=== PATIENT | male | born 1965 | race Caucasian/White ===

== ENCOUNTER → 2017-07-27 | Outpatient (REF) | LOC: ZLAB.WCH 14:36 | DX: Z01.89 Encounter for other specified special examinations (principal) ==

== ENCOUNTER → 2017-09-29 | Outpatient (CLI) | payer OTHER ==
[~2017-09-29] VITALS: Wt 107.0 kg
[~2017-09-29] MED LIST: FOLIC ACID 11 MG/TA1 PO; K-DUR20 MEQ PO; LASIX 40MG TABL40 MG PO; SEPTRA DS 8001 TAB PO; SYNTHROID0.05 MG/TA PO
[2017-09-29 12:35] VITALS: BP 127/83; PULSE 100
[2017-09-29 14:15] VITALS: BP 130/80; PULSE 103
== END ==
LOC: COL.RAD 12:00
DX: K70.31 Alcoholic cirrhosis of liver with ascites (principal)

== ENCOUNTER → 2017-10-10 | Outpatient (CLI) | payer OTHER ==
[~2017-10-10] VITALS: Ht 182.9 cm; Wt 170.9 kg
[~2017-10-10] MED LIST changes: +VITAMIN B1 50 MG PO
[2017-10-10 12:32] VITALS: BP 141/94; PULSE 97
[2017-10-10 14:33] VITALS: BP 146/86; PULSE 97
== END ==
LOC: COL.RAD 12:00
DX: K70.31 Alcoholic cirrhosis of liver with ascites (principal)

== ENCOUNTER → 2018-01-05 | Outpatient (CLI) | payer OTHER ==
[~2018-01-05] VITALS: Ht 182.9 cm; Wt 155.4 kg
[~2018-01-05] MED LIST changes: +PROVENTIL0.09 MG/A1 IH
[2018-01-05 09:17] VITALS: BP 119/62; PULSE 98
[2018-01-05 11:04] VITALS: BP 119/68; PULSE 91
== END ==
LOC: COL.RAD 09:00
DX: K70.31 Alcoholic cirrhosis of liver with ascites (principal); J44.9 Chronic obstructive pulmonary disease, unspecified

== ENCOUNTER → 2018-01-12 | Outpatient (CLI) | payer OTHER | LOC: COL.PUL 08:55 | DX: J44.9 Chronic obstructive pulmonary disease, unspecified (principal); F17.210 Nicotine dependence, cigarettes, uncomplicated ==

== ENCOUNTER 2018-01-17 20:01 | Inpatient (IN) | payer OTHER ==
[~2018-01-17] VITALS: Ht 182.9 cm; Wt 169.0 kg
[2018-01-17] VITALS (39 sets, daily range): BP systolic 96; BP diastolic 74; PULSE 94; TEMP 98.1; O2SAT 91–97
[2018-01-17 20:25] LABS: BASO # 0.1 (0.0-0.2); EOS # 0.3 (0.0-0.7); EOS % 4.9 % (0-4.0); GRAN # 4.4 (1.4-6.5); GRAN % 62.1 % (42.2-75.2); LYMPH # 1.6 (1.2-3.4); LYMPH % 22.4 % (20.0-51.0); MEAN CELL VOLUME 100 fl (80.0-100.0); MEAN CORPUSCULAR HGB CONC 33 g/dl (33.0-37.0); MEAN PLATELET VOLUME 8.9 fl (7.4-10.4); MONO # 0.7 (0.1-0.6); MONO % 9.3 % (1.7-9.3); PLATELET COUNT 109 K/mm3 (130-400); RED BLOOD COUNT 3.04 M/mm3 (4.20-5.60); REDCELL DISTRIBUTION WIDTH-CV 19.3 % (11.5-14.5)
[2018-01-17 20:26] LABS: HEMATOCRIT 30.4 % (42.0-52.0); HEMOGLOBIN 10.1 g/dl (13.5-18.0); MEAN CORPUSCULAR HEMOGLOBIN 33 pg (27.0-31.0)
[2018-01-17 20:50] LABS: ALBUMIN 2.2 gm/dL (3.5-5.0); BILIRUBIN,TOTAL 5.2 mg/dL (0.0-1.0); C-REACTIVE PROTEIN 1.7 mg/dL (0.0-0.9); CREATININE, serum 0.88 mg/dL (0.66-1.25); POTASSIUM 3.5 mmol/L (3.4-5.0); TOTAL PROTEIN 7.3 gm/dL (6.4-8.2)
[2018-01-17 21:44] LABS: COLLECTION METHOD CLEAN CATCH
[2018-01-17 21:49] LABS: MUCOUS Present /lpf; PH 5 (5-8); SQUAMOUS EPITHELIAL 0-2 /hpf; URINE APPEARANCE Clear; URINE BACTERIA None Seen /hpf; URINE BILIRUBIN Negative (NEGATIVE); URINE BLOOD Negative (NEGATIVE); URINE COLOR Yellow; URINE GLUCOSE Negative (NEGATIVE); URINE KETONE Negative (NEGATIVE); URINE LEUKOCYTE ESTERASE Negative (NEGATIVE); URINE NITRATE Negative (NEGATIVE); URINE PROTEIN(semi-quant) Negative (NEGATIVE); URINE RBC 0-2 /hpf; URINE UROBILINOGEN >=4.0 mg/dL (NEGATIVE)
[2018-01-17 23:50] LABS: INR 2.1 (0.8-3.0); PROTHROMBIN TIME 24.1 SECONDS (9.7-12.8)
[2018-01-18] VITALS (341 sets, daily range): BP systolic 99–130; BP diastolic 49–106; PULSE 54–108; TEMP 97.7–99; O2SAT 88–100
[2018-01-18 05:26] LABS: TRICYCLIC ANTIDEPRESS URINE NEGATIVE
[2018-01-18 05:41] LABS: BASO # 0.1 (0.0-0.2); BASO % 1.2 % (0.0-2.0); EOS # 0.4 (0.0-0.7); EOS % 4.8 % (0-4.0); GRAN # 4.5 (1.4-6.5); GRAN % 62.4 % (42.2-75.2); LYMPH # 1.6 (1.2-3.4); LYMPH % 21.6 % (20.0-51.0); MEAN CELL VOLUME 103 fl (80.0-100.0); MEAN CORPUSCULAR HGB CONC 33 g/dl (33.0-37.0); MONO # 0.7 (0.1-0.6); MONO % 9.7 % (1.7-9.3); PLATELET COUNT 109 K/mm3 (130-400); RED BLOOD COUNT 2.79 M/mm3 (4.20-5.60); REDCELL DISTRIBUTION WIDTH-CV 18.9 % (11.5-14.5)
[2018-01-18 05:53] LABS: HEMATOCRIT 28.7 % (42.0-52.0); HEMOGLOBIN 9.4 g/dl (13.5-18.0); MEAN CORPUSCULAR HEMOGLOBIN 34 pg (27.0-31.0)
[2018-01-18 05:55] LABS: CALCIUM 8.1 mg/dL (8.4-10.2); CREATININE, serum 0.93 mg/dL (0.66-1.25); POTASSIUM 3.3 mmol/L (3.4-5.0)
[2018-01-18 11:10] LABS: INR 2.2 (0.8-3.0); PROTHROMBIN TIME 25.4 SECONDS (9.7-12.8)
[2018-01-19] VITALS (7 sets, daily range): BP systolic 96–132; BP diastolic 40–54; PULSE 44–88; TEMP 98–98.6
[2018-01-19 07:25] LABS: INR 1.8 (0.8-3.0); PROTHROMBIN TIME 20.6 SECONDS (9.7-12.8)
[2018-01-19 08:02] LABS: FERRITIN 607 ng/mL (18-464); IRON,SERUM 131 ug/dL (35-150)
[2018-01-19 08:03] LABS: TOTAL IRON BINDING CAPACITY 197 ug/dL (261-462)
[2018-01-19 08:36] LABS: ALBUMIN 2.2 gm/dL (3.5-5.0); BILIRUBIN,TOTAL 4.5 mg/dL (0.0-1.0); CALCIUM 8.2 mg/dL (8.4-10.2); CREATININE, serum 1.12 mg/dL (0.66-1.25); MAGNESIUM 1.7 mg/dL (1.6-2.3); POTASSIUM 3.4 mmol/L (3.4-5.0); TOTAL PROTEIN 7.1 gm/dL (6.4-8.2)
[2018-01-19 08:39] LABS: BASO # 0.1 (0.0-0.2); EOS # 0.4 (0.0-0.7); EOS % 4.5 % (0-4.0); GRAN # 4.7 (1.4-6.5); GRAN % 60.6 % (42.2-75.2); LYMPH # 1.9 (1.2-3.4); LYMPH % 24.5 % (20.0-51.0); MEAN CELL VOLUME 101 fl (80.0-100.0); MEAN CORPUSCULAR HGB CONC 33 g/dl (33.0-37.0); MONO # 0.7 (0.1-0.6); PLATELET COUNT 122 K/mm3 (130-400); RED BLOOD COUNT 2.79 M/mm3 (4.20-5.60)
[2018-01-19 08:49] LABS: HEMATOCRIT 28.3 % (42.0-52.0); HEMOGLOBIN 9.2 g/dl (13.5-18.0); MEAN CORPUSCULAR HEMOGLOBIN 33 pg (27.0-31.0)
[2018-01-19 14:42] LABS: PERITONEAL -POLYMORPHONUCLEAR 7.7 % (0-25); PERITONEAL FLUID RBC 43000 /mm3 (0-0)
[2018-01-19 22:56] LABS: ANA SCREEN with REFLEX Negative (Negative)
[2018-01-20 01:46] VITALS: BP 95/42; PULSE 95; TEMP 98.6
[2018-01-20 06:13] VITALS: BP 94/41; PULSE 92; TEMP 98.7
[2018-01-20 06:49] LABS: BASO # 0.1 (0.0-0.2); BASO % 0.6 % (0.0-2.0); EOS # 0.3 (0.0-0.7); EOS % 3.1 % (0-4.0); GRAN # 5.5 (1.4-6.5); GRAN % 67.5 % (42.2-75.2); LYMPH # 1.5 (1.2-3.4); LYMPH % 18.8 % (20.0-51.0); MEAN CELL VOLUME 100 fl (80.0-100.0); MEAN CORPUSCULAR HGB CONC 33 g/dl (33.0-37.0); MEAN PLATELET VOLUME 9.2 fl (7.4-10.4); MONO # 0.8 (0.1-0.6); MONO % 9.4 % (1.7-9.3); PLATELET COUNT 107 K/mm3 (130-400)
[2018-01-20 06:51] LABS: HEMATOCRIT 26.1 % (42.0-52.0); HEMOGLOBIN 8.7 g/dl (13.5-18.0); MEAN CORPUSCULAR HEMOGLOBIN 33 pg (27.0-31.0)
[2018-01-20 07:00] LABS: INR 1.9 (0.8-3.0); PROTHROMBIN TIME 21.8 SECONDS (9.7-12.8)
[2018-01-20 07:05] LABS: ALBUMIN 2.3 gm/dL (3.5-5.0); BILIRUBIN,TOTAL 3.5 mg/dL (0.0-1.0); CALCIUM 7.9 mg/dL (8.4-10.2); CREATININE, serum 1.16 mg/dL (0.66-1.25); MAGNESIUM 1.6 mg/dL (1.6-2.3); POTASSIUM 3.4 mmol/L (3.4-5.0); TOTAL PROTEIN 6.6 gm/dL (6.4-8.2)
[2018-01-20 07:54] VITALS: BP 93/54; PULSE 89; TEMP 98.4
[2018-01-20 12:20] VITALS: BP 97/49; PULSE 85; TEMP 98.6
[2018-01-20 16:09] VITALS: BP 98/43; PULSE 94; TEMP 98.3
[2018-01-20 20:05] VITALS: BP 90/42; PULSE 86; TEMP 98.4
[2018-01-21] VITALS (7 sets, daily range): BP systolic 89–106; BP diastolic 34–50; PULSE 77–89; TEMP 97.5–98
[2018-01-21 06:42] LABS: BASO # 0.1 (0.0-0.2); EOS # 0.4 (0.0-0.7); EOS % 4.3 % (0-4.0); GRAN # 5.8 (1.4-6.5); GRAN % 68.9 % (42.2-75.2); LYMPH # 1.3 (1.2-3.4); LYMPH % 15.4 % (20.0-51.0); MEAN CELL VOLUME 103 fl (80.0-100.0); MEAN CORPUSCULAR HGB CONC 32 g/dl (33.0-37.0); MEAN PLATELET VOLUME 9.2 fl (7.4-10.4); MONO # 0.9 (0.1-0.6); MONO % 10.2 % (1.7-9.3); PLATELET COUNT 120 K/mm3 (130-400); RED BLOOD COUNT 2.69 M/mm3 (4.20-5.60); REDCELL DISTRIBUTION WIDTH-CV 19.3 % (11.5-14.5)
[2018-01-21 06:43] LABS: HEMATOCRIT 27.8 % (42.0-52.0); MEAN CORPUSCULAR HEMOGLOBIN 33 pg (27.0-31.0)
[2018-01-21 06:52] LABS: INR 1.8 (0.8-3.0); PROTHROMBIN TIME 20.9 SECONDS (9.7-12.8)
[2018-01-21 06:55] LABS: ALBUMIN 2.3 gm/dL (3.5-5.0); BILIRUBIN,TOTAL 4.2 mg/dL (0.0-1.0); CALCIUM 8.2 mg/dL (8.4-10.2); CREATININE, serum 1.08 mg/dL (0.66-1.25); POTASSIUM 3.6 mmol/L (3.4-5.0); TOTAL PROTEIN 6.6 gm/dL (6.4-8.2)
[2018-01-21 15:43] LABS: FOLATE (FOLIC ACID) 11.3 ng/mL (7.0-31.4)
[2018-01-22] VITALS (13 sets, daily range): BP systolic 92–115; BP diastolic 39–74; PULSE 73–92; TEMP 98.1–99.1
[2018-01-22 06:36] LABS: BASO # 0.1 (0.0-0.2); BASO % 0.8 % (0.0-2.0); EOS # 0.4 (0.0-0.7); EOS % 5.1 % (0-4.0); GRAN # 5.8 (1.4-6.5); GRAN % 67.8 % (42.2-75.2); LYMPH # 1.4 (1.2-3.4); LYMPH % 16.5 % (20.0-51.0); MEAN CELL VOLUME 104 fl (80.0-100.0); MEAN CORPUSCULAR HGB CONC 33 g/dl (33.0-37.0); MEAN PLATELET VOLUME 9.3 fl (7.4-10.4); MONO # 0.8 (0.1-0.6); MONO % 9.5 % (1.7-9.3); PLATELET COUNT 134 K/mm3 (130-400); RED BLOOD COUNT 2.69 M/mm3 (4.20-5.60); REDCELL DISTRIBUTION WIDTH-CV 19.4 % (11.5-14.5)
[2018-01-22 06:44] LABS: HEMOGLOBIN 9.1 g/dl (13.5-18.0); MEAN CORPUSCULAR HEMOGLOBIN 34 pg (27.0-31.0)
[2018-01-22 06:45] LABS: ALBUMIN 2.4 gm/dL (3.5-5.0); BILIRUBIN,TOTAL 4.4 mg/dL (0.0-1.0); CALCIUM 8.3 mg/dL (8.4-10.2); CREATININE, serum 1.03 mg/dL (0.66-1.25); POTASSIUM 3.9 mmol/L (3.4-5.0)
[2018-01-22 06:46] LABS: INR 1.7 (0.8-3.0); PROTHROMBIN TIME 20.3 SECONDS (9.7-12.8)
[2018-01-22 11:35] LABS: PLEURAL FLUID RBC 75000 /mm3 (0-0); PLEURAL FLUID WBC 283 /mm3
[2018-01-22 11:37] LABS: PLEURAL FLUID APPEARANCE BLOODY; PLEURAL FLUID COLOR RED
[2018-01-22 11:53] LABS: GLUCOSE,PLEURAL FLUID 103 mg/dL; TOTAL PROTEIN,PLEURAL FLUID 2.4 gm/dL
[2018-01-22 13:53] LABS: ALPHA 1 ANTITRYPSIN TOTAL 129 mg/dL (())
[2018-01-23] VITALS (7 sets, daily range): BP systolic 88–125; BP diastolic 41–70; PULSE 81–98; TEMP 97.7–98.5
[2018-01-23 07:04] LABS: BASO # 0.1 (0.0-0.2); BASO % 0.9 % (0.0-2.0); EOS # 0.3 (0.0-0.7); EOS % 3.5 % (0-4.0); GRAN # 5.7 (1.4-6.5); GRAN % 64.5 % (42.2-75.2); LYMPH # 1.8 (1.2-3.4); LYMPH % 20.2 % (20.0-51.0); MEAN CELL VOLUME 103 fl (80.0-100.0); MEAN CORPUSCULAR HGB CONC 33 g/dl (33.0-37.0); MEAN PLATELET VOLUME 9.4 fl (7.4-10.4); MONO # 0.9 (0.1-0.6); MONO % 10.4 % (1.7-9.3); PLATELET COUNT 130 K/mm3 (130-400); RED BLOOD COUNT 2.58 M/mm3 (4.20-5.60); REDCELL DISTRIBUTION WIDTH-CV 19.4 % (11.5-14.5)
[2018-01-23 07:05] LABS: ALBUMIN 2.4 gm/dL (3.5-5.0); BILIRUBIN,TOTAL 3.1 mg/dL (0.0-1.0); CALCIUM 8.3 mg/dL (8.4-10.2); CREATININE, serum 1.2 mg/dL (0.66-1.25); POTASSIUM 3.7 mmol/L (3.4-5.0); TOTAL PROTEIN 6.6 gm/dL (6.4-8.2)
[2018-01-23 07:10] LABS: HEMATOCRIT 26.5 % (42.0-52.0); HEMOGLOBIN 8.6 g/dl (13.5-18.0); MEAN CORPUSCULAR HEMOGLOBIN 33 pg (27.0-31.0)
[2018-01-23 07:24] LABS: INR 1.8 (0.8-3.0); PROTHROMBIN TIME 21.2 SECONDS (9.7-12.8)
[2018-01-23 15:15] LABS: CERULOPLASMIN 17.4 mg/dL (())
[2018-01-24 03:35] VITALS: BP 135/83; PULSE 94; TEMP 97.7
[2018-01-24 07:22] LABS: BASO # 0.1 (0.0-0.2); EOS # 0.3 (0.0-0.7); EOS % 4.3 % (0-4.0); GRAN # 4.8 (1.4-6.5); GRAN % 66.6 % (42.2-75.2); LYMPH # 1.2 (1.2-3.4); LYMPH % 16.4 % (20.0-51.0); MEAN CELL VOLUME 104 fl (80.0-100.0); MEAN CORPUSCULAR HGB CONC 32 g/dl (33.0-37.0); MEAN PLATELET VOLUME 9.3 fl (7.4-10.4); MONO # 0.8 (0.1-0.6); MONO % 11.3 % (1.7-9.3); PLATELET COUNT 128 K/mm3 (130-400); RED BLOOD COUNT 2.56 M/mm3 (4.20-5.60); REDCELL DISTRIBUTION WIDTH-CV 19.3 % (11.5-14.5)
[2018-01-24 07:24] LABS: HEMATOCRIT 26.6 % (42.0-52.0); HEMOGLOBIN 8.6 g/dl (13.5-18.0); MEAN CORPUSCULAR HEMOGLOBIN 34 pg (27.0-31.0)
[2018-01-24 07:36] LABS: ALBUMIN 2.3 gm/dL (3.5-5.0); BILIRUBIN,TOTAL 3.1 mg/dL (0.0-1.0); CALCIUM 8.1 mg/dL (8.4-10.2); CREATININE, serum 1.26 mg/dL (0.66-1.25); POTASSIUM 3.9 mmol/L (3.4-5.0); TOTAL PROTEIN 6.7 gm/dL (6.4-8.2)
[2018-01-24 07:46] VITALS: BP 107/47; PULSE 87; TEMP 98.3
[2018-01-24] MEDS ORDERED: PROTONIX 40MG T40 MG PO (09:44)
[2018-01-24] MEDS ORDERED: DUO-KAPS1 CAP PO (09:44)
[2018-01-24] MEDS ORDERED: ALDACTONE 100M100 MG PO (09:45)
[2018-01-24] MEDS ORDERED: LEVAQUIN 750MG750 M1 PO (09:46)
[2018-01-24] MEDS ORDERED: INCRUSE EL62.5 MCG/A IH (09:55)
[2018-01-24 12:02] VITALS: BP 107/52; PULSE 90; TEMP 97.8
== END 2018-01-24 14:30 | disposition home or self-care (01) | DRG 433 ==
LOC: COL.ER 20:01 → ICU 21:26 → MEDICAL 21:26
PROVIDERS: Family Medicine; Internal Medicine; Internal Medicine Gastroenterology; Internal Medicine Pulmonary Disease; Nurse Practitioner; Nurse Practitioner Family
PROC: 0W9G3ZX Drainage of Peritoneal Cavity, Percutaneous Approach, Diagnostic (ICD-10-PCS; 2018-01-19)
PROC: 0DB78ZX Excision of Stomach, Pylorus, Via Natural or Artificial Opening Endoscopic, Diagnostic (ICD-10-PCS; 2018-01-22)
PROC: 0W9B3ZZ Drainage of Left Pleural Cavity, Percutaneous Approach (ICD-10-PCS; principal; 2018-01-22 07:30)
DX: K70.9 Alcoholic liver disease, unspecified (principal); J90 Pleural effusion, not elsewhere classified; R18.8 Other ascites; Z68.43 Body mass index [BMI] 50.0-59.9, adult; E03.9 Hypothyroidism, unspecified; E66.01 Morbid (severe) obesity due to excess calories; F17.210 Nicotine dependence, cigarettes, uncomplicated; J44.9 Chronic obstructive pulmonary disease, unspecified; F10.20 Alcohol dependence, uncomplicated; D75.89 Other specified diseases of blood and blood-forming organs; I89.0 Lymphedema, not elsewhere classified; D69.6 Thrombocytopenia, unspecified
CPT/HCPCS: 99223-AI; 99232-AI; 99233-AI; 99239; J1940; J1956; J2250; J2405; J2704; J3430; J7030; P9047; Q9967

== ENCOUNTER → 2018-07-16 | Outpatient (CLI) | payer OTHER ==
[~2018-07-16] MED LIST changes: +ALDACTONE 100M100 MG PO; +DUO-KAPS1 CAP PO; +INCRUSE EL62.5 MCG/A IH; +LEVAQUIN 750MG750 M1 PO; +PROTONIX 40MG T40 MG PO
== END ==
LOC: COL.RAD 07-12 09:45
DX: K70.31 Alcoholic cirrhosis of liver with ascites (principal); K76.6 Portal hypertension

== ENCOUNTER → 2019-02-05 | Outpatient (REF) | LOC: ZLAB.WCH 14:16 | DX: Z01.89 Encounter for other specified special examinations (principal) ==

== ENCOUNTER → 2019-02-06 | Outpatient (REF) | LOC: ZLAB.WCH 17:25 | DX: Z01.89 Encounter for other specified special examinations (principal) ==

== ENCOUNTER → 2021-06-24 | Outpatient (CLI) | payer MEDICARE ==
[~2021-06-24] MED LIST changes: +PREDNISONE20 MG PO
== END ==
LOC: COL.RAD 08:15
DX: K82.8 Other specified diseases of gallbladder (principal); K76.6 Portal hypertension; K70.31 Alcoholic cirrhosis of liver with ascites

== ENCOUNTER 2021-07-19 11:07 | Emergency (ER) | payer MEDICARE ==
[~2021-07-19] VITALS: Ht 182.9 cm; Wt 117.3 kg
[~2021-07-19 11:07] MED LIST changes: -PREDNISONE20 MG PO
[2021-07-19 11:17] VITALS: TEMP 98.1
[2021-07-19 12:21] LABS: BASO # 0.1 K/mm3 (0.0-0.2); BASO % 1.8 % (0.0-2.0); EOS # 0.6 K/mm3 (0.0-0.7); EOS % 8.8 % (0-4.0); GRAN # 4.3 K/mm3 (1.4-6.5); GRAN % 63.6 % (42.2-75.2); HEMOGLOBIN 12.4 g/dl (13.5-18.0); LYMPH # 1.1 K/mm3 (1.2-3.4); LYMPH % 16.8 % (20.0-51.0); MEAN CELL VOLUME 94 fl (80.0-100.0); MEAN CORPUSCULAR HEMOGLOBIN 32 pg (27.0-31.0); MEAN CORPUSCULAR HGB CONC 34 g/dl (33.0-37.0); MEAN PLATELET VOLUME 8.6 fl (7.4-10.4); MONO # 0.6 K/mm3 (0.1-0.6); MONO % 8.9 % (1.7-9.3); PLATELET COUNT 200 K/mm3 (130-400); RED BLOOD COUNT 3.91 M/mm3 (4.20-5.60)
[2021-07-19 12:23] LABS: HEMATOCRIT 36.7 % (42.0-52.0)
[2021-07-19 12:44] LABS: ALBUMIN 2.9 gm/dL (3.5-5.0); BILIRUBIN,TOTAL 2.4 mg/dL (0.2-1.2); CREATININE, serum 1.11 mg/dL (0.72-1.25); POTASSIUM 3.1 mmol/L (3.5-4.5); TOTAL PROTEIN 7.3 gm/dL (6.2-8.1)
[2021-07-19 12:50] LABS: TROPONIN-I 0.01 ng/mL (0.00-0.033)
[2021-07-19] MEDS ORDERED: PREDNISONE20 MG PO (15:27)
[2021-07-19 15:41] VITALS: BP 130/75; PULSE 84
== END 2021-07-19 15:42 | disposition home or self-care (01) ==
LOC: COL.ER 11:07
PROVIDERS: Physician Assistant
DX: J98.11 Atelectasis (principal); J90 Pleural effusion, not elsewhere classified; K74.60 Unspecified cirrhosis of liver; E11.9 Type 2 diabetes mellitus without complications; E66.01 Morbid (severe) obesity due to excess calories; Z87.891 Personal history of nicotine dependence
CPT/HCPCS: J7512; Q9967

== ENCOUNTER 2022-03-25 10:50 | Day surgery (SDC) | payer MEDICARE ==
[~2022-03-25] VITALS: Ht 182.9 cm; Wt 130.9 kg
[~2022-03-25 10:50] MED LIST changes: +PREDNISONE20 MG PO
[2022-03-25 11:57] VITALS: BP 142/87; PULSE 67; TEMP 98.6
[2022-03-25] MEDS ORDERED: LASIX 80MG TABL80 MG PO (12:12)
[2022-03-25] MEDS ORDERED: ALDACTONE50 MG PO (12:12)
[2022-03-25] MEDS ORDERED: SYNTHROID 0.0.025 MG PO (12:13)
[2022-03-25] MEDS ORDERED: TRELEGY ELLIPT1 EACH IH (12:13)
[2022-03-25] MEDS ORDERED: ALBUTEROL0.83 MG/ML IH (12:14)
[2022-03-25] MEDS ORDERED: PROAIR HFA0.09 MG/AC IH (12:15)
[2022-03-25 12:55] VITALS: BP 109/59; PULSE 61; TEMP 98
--- NOTE | 2022-03-25 13:09 | NUR ---
1255 - PT arrived to [facility] and was settled by Maira ESPINAL. Monitors applied and vitals obtained. Warm blankets provided. PT provided with hot coffee, ice water and a warm muffin with cream and sugar per request. PT oriented to room and call forbes, within reach. PT denies nausea and pain. NO vomiting.
[2022-03-25 13:10] VITALS: BP 114/60; PULSE 61
--- NOTE | 2022-03-25 13:19 | NUR ---
1310 - Vitals obtained. PT continues to deny nausea. NO vomiting. PT expressed desire to be discharged. Call forbes remains within reach.
[2022-03-25 13:25] VITALS: BP 114/63; PULSE 62
--- NOTE | 2022-03-25 13:25 | NUR ---
VSS. PT continues to deny nausea. NO vomiting. PT has finished snack and drink. IV discontinued. Catheter tip intact. Pressure bandage applied. NO redness or swelling noted. DC instructions and educational material reviewed with the PT who verbalized understanding and signed the related paperwork. Questions answered to PT satisfaction. PT denied needing assistance changing into personal clothes. Call forbes remains within reach.
--- NOTE | 2022-03-25 13:40 | NUR ---
PT was taken to the PT entrence by Valery ESPINAL. PT has his DC packet and personal belongins and was transferred into the care of his friend, who is present to drive private car.
--- NOTE | 2022-03-25 13:46 | NUR ---
PT has changed and ambulated independently to the bathroom. Awaiting ride to arrive to facility.
[2022-03-25 13:50] VITALS: BP 114/75; PULSE 79
--- NOTE | 2022-03-25 13:50 | NUR ---
PT was dismissed from endo via wheelchair to the PT entrence by Valery ESPINAL. PT has DC packet and personal belongings in hand and was transferred into the care of a friend who is present to drive
== END 2022-03-25 13:50 | disposition home or self-care (01) ==
LOC: SDCO 10:50
DX: I85.10 Secondary esophageal varices without bleeding (principal); K70.31 Alcoholic cirrhosis of liver with ascites; K21.00 Gastro-esophageal reflux disease with esophagitis, without bleeding; K29.30 Chronic superficial gastritis without bleeding; F17.210 Nicotine dependence, cigarettes, uncomplicated
CPT/HCPCS: J2704; J7030